=== PATIENT | female | born 1975 | race Caucasian/White ===

== ENCOUNTER 2017-06-06 10:40 | Emergency (ER) | payer OTHER ==
[~2017-06-06] VITALS: Ht 165.1 cm; Wt 59.6 kg
[~2017-06-06 10:40] MED LIST: IBUP-1050 PO
[2017-06-06 10:46] VITALS: TEMP 36.3; Ht 165.1 cm; Wt 59.6 kg
[2017-06-06] MEDS ORDERED: SODIUM CHLORIDE 0.9% 1000ML 2,000 ML IV STA (11:00)
[2017-06-06] MEDS ORDERED: KETOROLAC TROMETHAMINE 30 MG/ML VIAL IV STA (11:00)
[2017-06-06] MEDS ORDERED: HYDROmorphone INJ 1 MG/ML SYR IV STA (11:00)
[2017-06-06] MEDS ORDERED: ONDANSETRON INJ 2 MG/ML 2 ML VIAL IV STA (11:00)
[2017-06-06 11:19] LABS: BASO % 0.3 %; BASO ABS # 0.04 K/uL (0-0.2); EOS % 1.2 %; EOS ABS # 0.17 K/uL (0-0.5); HEMATOCRIT 42.7 % (37-47); HEMOGLOBIN 15.2 g/dL (12.0-16.0); IG# 0.04 K/uL (0.00-0.02); LYMPH % 17.1 %; LYMPH ABS # 2.34 K/uL (1.2-3.4); MEAN CELL VOLUME 93.6 fL (80-100); MEAN CORPUSCULAR HEMOGLOBIN 33.3 pg (25-34); MEAN CORPUSCULAR HGB CONC 35.6 g/dl (32-36); MEAN PLATELET VOLUME 8.8 fL (7.4-10.4); MONO % 5.9 %; MONO ABS # 0.81 K/uL (0.11-0.59); NEUT % 75.2 %; NEUT ABS # 10.26 K/uL (1.4-6.5); PLATELET COUNT 312 K/uL (130-400); RED CELL DISTRIBUTION WIDTH CV 12.2 % (11.5-14.5); RED CELL DISTRIBUTION WIDTH SD 41.5 fL (36.4-46.3); WHITE BLOOD COUNT 13.66 K/uL (4.8-10.8)
[2017-06-06 11:45] LABS: ALBUMIN 4.1 gm/dl (3.4-5.0); ALT/SGPT 16 U/L (12-78); BLOOD UREA NITROGEN 12 mg/dl (7-18); CALCIUM 8.7 mg/dl (8.5-10.1); CARBON DIOXIDE 25 mmol/L (21-32); CREATININE 0.75 mg/dl (0.60-1.20); GLUCOSE 89 mg/dl (70-99); LIPASE 83 U/L (73-393); POTASSIUM 3.2 mmol/L (3.5-5.1); SODIUM 139 mmol/L (136-145)
[2017-06-06 11:48] LABS: ALKALINE PHOSPHATASE 73 U/L (45-117); AST/SGOT 12 U/L (15-37); TOTAL PROTEIN 7.5 gm/dl (6.4-8.2)
--- NOTE | 2017-06-06 11:58 | DIAGNOSTIC IMAGING REPORT ---
ABD/PELVIS NO IV OR ORAL CONT CT DOSE: 245.76 mGy.cm HISTORY: Pain severe L flank pain TECHNIQUE: Multiaxial CT images of the abdomen and pelvis were performed without contrast. A dose lowering technique was utilized adhering to the principles of ALARA. COMPARISON STUDY: None. FINDINGS: Lung bases are clear. Liver spleen and pancreas are unremarkable. Right kidney is negative for hydronephrosis. There are several nonobstructing right renal calcifications. Kidney shows mild fullness of the renal pelvis and left ureter compared to the right. There is a 2 mm partially obstructing calculus of the distal left ureter. This is 2 cm from the left ureterovesical junction. There is a 2.5 cm septated left ovarian cyst. Uterus is anteflexed. There is no free fluid within the pelvic cul-de-sac. IMPRESSION: 1. 2 mm partially obstructing calculus distal left ureter. 2. Mild fullness left renal collecting system and left ureter. 3. 2.5 cm septated left ovarian cyst. The above report was generated using voice recognition software. It may contain grammatical, syntax or spelling errors. Electronically signed by: Juan Lemus M.D. 06/06/2017 11:57 AM Dictated Date/Time: 06/06/2017 11:54 AM
[2017-06-06] MEDS ORDERED: MoRPHine SULFATE 4 MG/ML 1 ML CARP\\VIAL IV STA (13:25)
[2017-06-06] MEDS ORDERED: HYDROmorphone INJ 0.5 MG/0.5 ML SYR IV STA (13:50)
[2017-06-06] MEDS ORDERED: OXYC1TAB3 PO (14:00)
[2017-06-06] MEDS ORDERED: TAMS0.4C38 PO (14:00)
[2017-06-06 14:01] VITALS: BP 99/58; PULSE 66; O2SAT 98
--- NOTE | 2017-06-06 17:08 | EMERGENCY ROOM VISIT NOTE ---
History Report prepared by [place]: Ely Lopez Under the Supervision of: Dr. Shawn Tian D.O. First contact with patient: 10:48 Chief Complaint: FLANK PAIN Stated Complaint: KIDNEY STONES History of Present Illness The patient is a 41 year old female who presents to the Emergency Room with complaints of persistent left flank pain since 0600 this morning. She rates her discomfort as a 9/10 in severity and states the pain wraps around to her back. She describes pain as sharp stabbing in nature. No exacerbating or remitting factors. Pain initially started in the left flank and wraps around to her back now. She also complains of nausea, vomiting and increased urinary urgency as well as dysuria. She denies any previous history of kidney stones. The patient admits to a history of rectal prolapse but denies any other chronic medical problems. She has no history of prior abdominal surgery. Her LMP was last week and normal. The patient denies headache, change in vision, fevers, chest pain, shortness of breath, diarrhea and melena. Source of History: patient Onset: 0600 this morning Position: back (left flank ) Symptom Intensity: 9/10 Timing: other (persistent) Associated Symptoms: + nausea, + vomiting, + urinary symptoms, No fevers, No headache, No chest pain, No SOB, No melena, No diarrhea Review of Systems See HPI for pertinent positives & negatives. A total of 10 systems reviewed and were otherwise negative. Past Medical & Surgical Medical Problems: (1) Rectal prolapse Social History Smoking Status: Never Smoker Alcohol Use: none Drug Use: none Marital Status: Housing Status: lives with family Occupation Status: employed Current/Historical Medications Scheduled Ibuprofen (Advil), 200-600 MG PO Q4HR PRN Tamsulosin Hcl (Flomax), 0.4 MG PO DAILY Scheduled PRN Oxycodone Immediate Rel Tab (Roxicodone Ir), 5 MG PO Q6H PRN for Pain Allergies Coded Allergies: No Known Allergies (Verified , 06/06/17) Physical Exam Vital Signs Date Time Temp Pulse Resp B/P (MAP) Pulse Ox O2 Delivery O2 Flow Rate FiO2 06/06/17 14:01 66 99/58 98 Room Air 06/06/17 12:34 119/54 06/06/17 12:10 55 17 100 06/06/17 12:09 60 06/06/17 11:40 63 21 98 06/06/17 10:46 36.3 77 18 135/76 99 Room Air Physical Exam GENERAL: Patient is standing up in the room, holding left flank, tearful, in moderate distress. EYE EXAM: Conjunctiva injected. OROPHARYNX: no exudate, no erythema, lips, buccal mucosa, and tongue normal and mucous membranes are moist NECK: supple, no nuchal rigidity, no adenopathy, non-tender LUNGS: Clear to auscultation. Normal chest wall mechanics HEART: no murmurs, S1 normal and S2 normal ABDOMEN: abdomen soft, non-tender, mild reproducible left flank pain, normo- active bowel sounds, no masses, no rebound or guarding. BACK: Back is symmetrical on inspection and there is no deformity, no midline tenderness, no CVA tenderness. SKIN: no rashes and no bruising UPPER EXTREMITIES: upper extremities are grossly normal. LOWER EXTREMITIES: No pitting edema. NEURO EXAM: Normal sensorium, cranial nerves II-XII grossly intact, normal speech, no gross weakness of arms, no gross weakness of legs. Gross sensation intact. Medical Decision & Procedures ER Provider Diagnostic Interpretation: Radiology results as stated below per my review and the radiologist's interpretation: ABD/PELVIS NO IV OR ORAL CONT CT DOSE: 245.76 mGy.cm HISTORY: Pain severe L flank pain TECHNIQUE: Multiaxial CT images of the abdomen and pelvis were performed without contrast. A dose lowering technique was utilized adhering to the principles of ALARA. COMPARISON STUDY: None. FINDINGS: Lung bases are clear. Liver spleen and pancreas are unremarkable. Right kidney is negative for hydronephrosis. There are several nonobstructing right renal calcifications. Kidney shows mild fullness of the renal pelvis and left ureter compared to the right. There is a 2 mm partially obstructing calculus of the distal left ureter. This is 2 cm from the left ureterovesical junction. There is a 2.5 cm septated left ovarian cyst. Uterus is anteflexed. There is no free fluid within the pelvic cul-de-sac. IMPRESSION: 1. 2 mm partially obstructing calculus distal left ureter. 2. Mild fullness left renal collecting system and left ureter. 3. 2.5 cm septated left ovarian cyst. The above report was generated using voice recognition software. It may contain grammatical, syntax or spelling errors. Electronically signed by: Juan Lemus M.D. 06/06/2017 11:57 AM Laboratory Results 06/06/17 11:10 Red Blood Count 4.56, Mean Corpuscular Volume 93.6, Mean Corpuscular Hemoglobin 33.3, Mean Corpuscular Hemoglobin Concent 35.6, Mean Platelet Volume 8.8, Neutrophils (%) (Auto) 75.2, Lymphocytes (%) (Auto) 17.1, Monocytes (%) (Auto) 5.9, Eosinophils (%) (Auto) 1.2, Basophils (%) (Auto) 0.3, Neutrophils # (Auto) 10.26, Lymphocytes # (Auto) 2.34, Monocytes # (Auto) 0.81, Eosinophils # (Auto) 0.17, Basophils # (Auto) 0.04 06/06/17 11:10 Test 06/06/17 11:10 06/06/17 12:40 White Blood Count 13.66 K/uL (4.8-10.8) Red Blood Count 4.56 M/uL (4.2-5.4) Hemoglobin 15.2 g/dL (12.0-16.0) Hematocrit 42.7 % (37-47) Mean Corpuscular Volume 93.6 fL (80-100) Mean Corpuscular Hemoglobin 33.3 pg (25-34) Mean Corpuscular Hemoglobin Concent 35.6 g/dl (32-36) Platelet Count 312 K/uL (130-400) Mean Platelet Volume 8.8 fL (7.4-10.4) Neutrophils (%) (Auto) 75.2 % Lymphocytes (%) (Auto) 17.1 % Monocytes (%) (Auto) 5.9 % Eosinophils (%) (Auto) 1.2 % Basophils (%) (Auto) 0.3 % Neutrophils # (Auto) 10.26 K/uL (1.4-6.5) Lymphocytes # (Auto) 2.34 K/uL (1.2-3.4) Monocytes # (Auto) 0.81 K/uL (0.11-0.59) Eosinophils # (Auto) 0.17 K/uL (0-0.5) Basophils # (Auto) 0.04 K/uL (0-0.2) RDW Standard Deviation 41.5 fL (36.4-46.3) RDW Coefficient of Variation 12.2 % (11.5-14.5) Immature Granulocyte % (Auto) 0.3 % Immature Granulocyte # (Auto) 0.04 K/uL (0.00-0.02) Anion Gap 7.0 mmol/L (3-11) Est Creatinine Clear Calc Drug Dose 87.9 ml/min Estimated GFR () 113.9 Estimated GFR (Non- 98.3 BUN/Creatinine Ratio 16.4 (10-20) Calcium Level 8.7 mg/dl (8.5-10.1) Total Bilirubin 0.4 mg/dl (0.2-1) Direct Bilirubin < 0.1 mg/dl (0-0.2) Aspartate Amino Transf (AST/SGOT) 12 U/L (15-37) Alanine Aminotransferase (ALT/SGPT) 16 U/L (12-78) Alkaline Phosphatase 73 U/L (45-117) Total Protein 7.5 gm/dl (6.4-8.2) Albumin 4.1 gm/dl (3.4-5.0) Lipase 83 U/L (73-393) Urine Color DK YELLOW Urine Appearance CLOUDY (CLEAR) Urine pH 5.0 (4.5-7.5) Urine Specific [place] 1.027 (1.000-1.030) Urine Protein NEG (NEG) Urine Glucose (UA) NEG (NEG) Urine Ketones TRACE (NEG) Urine Occult Blood 3+ (NEG) Urine Nitrite NEG (NEG) Urine Bilirubin NEG (NEG) Urine Urobilinogen NEG (NEG) Urine Leukocyte Esterase NEG (NEG) Urine WBC (Auto) 1-5 /hpf (0-5) Urine RBC (Auto) >30 /hpf (0-4) Urine Hyaline Casts (Auto) 1-5 /lpf (0-5) Urine Epithelial Cells (Auto) >30 /lpf (0-5) Urine Bacteria (Auto) NEG (NEG) Urine Crystals CALCIUM OXALATE (NONE Urine Pathogenic Casts /lpf (0) Urine Mucus PRESENT (NONE PRSENT) Urine Test NEG (NEG) Laboratory results per my review. Medications Administered Medications (Trade) Dose Ordered Sig/Stacy Route Start Time Stop Time Status Last Admin Dose Admin Sodium Chloride 2,000 ml @ 999 mls/hr Q2H1M STAT IV 06/06/17 11:00 06/06/17 13:00 DC 06/06/17 11:16 999 MLS/HR Ondansetron HCl (Zofran Inj) 4 mg NOW STAT IV 06/06/17 11:00 06/06/17 11:02 DC 06/06/17 11:16 4 MG Hydromorphone HCl (Dilaudid Inj) 1 mg NOW STAT IV 06/06/17 11:00 06/06/17 11:02 DC 06/06/17 11:14 1 MG Ketorolac Tromethamine (Toradol Inj) 30 mg NOW STAT IV 06/06/17 11:00 06/06/17 11:02 DC 06/06/17 11:16 30 MG Hydromorphone HCl (Dilaudid Inj) 0.5 mg NOW STAT IV 06/06/17 13:50 06/06/17 13:52 DC 06/06/17 14:00 0.5 MG ED Course ED COURSE: Vital signs were reviewed and showed normal vital signs. The patients medical record was reviewed The above diagnostic studies were performed and reviewed. ED treatments and interventions as stated above. 1055: The patient was evaluated in room C10. A complete history and physical examination was performed. 1100: Toradol 30 mg IV, Dilaudid 1 mg IV, Zofran 4 mg IV, NSS 2000 ml @ 999 mls/ hr IV. 1339: Upon reevaluation, the patient is feel better and resting comfortably. I discussed my findings with the patient and she understands and agrees with the treatment plan. 1350: Dilaudid 0.5 mg IV. Based on the patients age, coexisting illnesses, exam and lab findings the decision to treat as an outpatient was made. The patient remained stable while under my care. The patient appeared well at the time of discharge. Medical Decision Differential diagnoses includes but is not limited to gastritis, peptic ulcer disease, GERD, gallbladder disease, pancreatitis, small bowel obstruction, acute coronary syndrome, pericarditis, ischemic bowel, irritable bowel disease, irritable bowel syndrome, appendicitis, diverticulitis, malignancy, hernia, urinary tract infection, torsion, /ectopic , perforation, trauma, infectious. Patient is a 41-year-old female who presents to ER for sharp pain in the left lower quadrant radiating to the back. Started at 6 AM. Did have hematuria in the urine. Labs show a mild leukocytosis of 13.6 thousand. BMP along with LFTs , bilirubin lipase is normal. UA without infection. was negative. No fevers. CT shows 2 mm distal stone. Patient was given IV Dilaudid 2 along with Zofran and fluids. She is updated at bedside. She is discharged follow- up with urology. Discussed with Pt concerning signs and symptoms to watch out for. Pt was instructed to follow up with their PCP and discussed with the patient their option to return to the ED at anytime for persistent or worsening symptoms. The appropriate anticipatory guidance and out-patient management, including indications for return to the emergency department, were explained at length to the patient and understood. [place] Drug Monitoring Program Search Results: patient reviewed within database, no issues identified Medication Reconcilliation Current Medication List: was personally reviewed by me Blood Pressure Screening Patient's blood pressure: Low blood pressure Impression Primary Impression: Hydronephrosis Additional Impression: Renal colic Scribe Attestation The scribe's documentation has been prepared under my direction and personally reviewed by me in its entirety. I confirm that the note above accurately reflects all work, treatment, procedures, and medical decision making performed by me. Departure Information Dispostion Home / Self-Care Prescriptions Tamsulosin Hcl (FLOMAX) 0.4 Mg Cap 0.4 MG PO DAILY, #10 CAP Prov: Shawn Tian, DO 06/06/17 Oxycodone Immediate Rel Tab (ROXICODONE IR) 5 Mg Tab 5 MG PO Q6H Y for Pain, #15 TAB Prov: Shawn Tian, DO 06/06/17 Referrals Juliano Leija DO (PCP) Patient Instructions Kidney Stones - [facility], [facility] Additional Instructions Please follow up with your primary care doctor with in the next 24 hours. Any worsening of your symptoms, please return to the ED immediately. This includes any fevers greater than 100.4, worsening pain, chest pain, shortness breath, persistent nausea, vomiting, unable to eat or drink, or any other concerning signs or symptoms from your standpoint. You were given medications during this visit that will inhibit your ability to drive, operate machinery and work. Please do NOT drive, operate machinery or work for the next 12hrs. You were also given a prescription for a narcotic. While taking this medication you should also not drive, operate machinery and or work. Please follow-up with urology within the next week. Problem Qualifiers Primary Impression: Hydronephrosis Hydronephrosis type: unspecified Qualified Codes: N13.30 - Unspecified hydronephrosis
== END 2017-06-06 14:30 | disposition home or self-care (01) ==
LOC: C.EDB 10:41 → C.EDC 14:30
DX: N13.2 Hydronephrosis with renal and ureteral calculous obstruction (principal); N23 Unspecified renal colic; Z79.899 Other long term (current) drug therapy